=== PATIENT | male | born 1970 | race Hispanic/Latino ===

== ENCOUNTER 2022-05-22 10:01 | Inpatient (IN) | payer SELFPAY ==
[2022-05-22] MEDS ORDERED: methylPREDNISolone Sod Succ/PF 125 MG/2 ML VIAL ONE (10:58)
[2022-05-22] MEDS ORDERED: Albuterol 2.5 MG/0.5 ML NEB ONE (11:05)
[2022-05-22 11:08] LABS: Hemoglobin 16.4 g/dL (14.0-18.0); Mean Corpuscular HGB CONC 35.9 g/dL (32.0-36.0); Mean Corpuscular Hemoglobin 38.8 pg (27.0-31.0); Platelet Count 171 10x3/uL (130-400); RBC Distribution Width 13.2 % (11.5-14.5); Red Blood Cell (RBC) Count 4.23 mill/uL (4.70-6.10); White Blood Cell (WBC) Count 8.2 10x3/uL (4.8-10.8)
[2022-05-22 11:22] LABS: #Eosinphils 0.1 thou/uL (0.0-0.7); #Lymphocytes 1.6 thou/uL (1.20-3.40); #Monocytes 0.6 thou/uL (0.11-0.59); #Neutrophils 5.9 thou/uL (1.40-6.50); %Basophils 0.6 % (0.0-1.0); %Eosinophils 1.7 % (0.0-10.0); %Lymphocytes 19.6 % (21.0-51.0); %Monocytes 6.7 % (0.0-10.0); %Neutrophils 71.4 % (42.0-75.0); Hypochromia SLIGHT = 6-15 cells (100X) (0-5/hpf); MDiff Complete? YES; Microcytosis SLIGHT = 6-15 cells (100X) (0-5/hpf); Platelet Morphology Comment Appears Adequate
[2022-05-22 11:23] LABS: ALT (SGPT) 28 U/L (8-55); AST (SGOT) 30 U/L (5-34); Albumin 3.5 g/dL (3.5-5.0); Alkaline Phosphatase 118 U/L (40-110); Anion Gap 9 mmol/L (10-20); BUN (Urea Nitrogen) 11 mg/dL (8.9-20.6); Bilirubin, Total 0.5 mg/dL (0.2-1.2); Calc. Creatinine Clearance 0 mL/min (70-130); Calcium 8.3 mg/dL (7.8-10.44); Carbon Dioxide 34 mmol/L (22-29); Chloride 101 mmol/L (98-107); Estimated GFR 111; Globulin 3.3 g/dL (2.4-3.5); Glucose 92 mg/dL (70-105); Potassium 4.4 mmol/L (3.5-5.1); Protein, Total 6.8 g/dL (6.0-8.3); Sodium 140 mmol/L (136-145)
[2022-05-22 11:45] LABS: CKMB 5.2 ng/mL (0-6.6)
[2022-05-22 11:59] LABS: SARS-CoV-2 NAA Rapid Test Not Detected (NotDetected)
[2022-05-22] MEDS ORDERED: Iopamidol-370 76% 500 ML MDV (1 ML CHARGE) ONE (12:12)
[2022-05-22] MEDS ORDERED: cefTRIAXone (ROCEPHIN) 2 GM VIAL ONE (13:32)
[2022-05-22] MEDS ORDERED: Azithromycin 500 MG VIAL ONE (13:32)
[2022-05-22] MEDS ORDERED: Aspirin Chewable 81 MG TAB ONE (14:45)
[2022-05-22] MEDS ORDERED: Acetaminophen 325 MG TAB PO PRN (15:59)
[2022-05-22] MEDS ORDERED: Ondansetron PF 4 MG/2 ML Vial IVP PRN (15:59)
[2022-05-22] MEDS ORDERED: Ondansetron ODT 4 MG TAB PO PRN (15:59)
[2022-05-22 17:57] LABS: Troponin I 0.035 ng/mL (< 0.028)
[2022-05-22 18:54] VITALS: BMI 57.6
[2022-05-22] MEDS ORDERED: Ipratropium/Albuterol 3 ML NEB NEB SCH (19:00)
[2022-05-22] MEDS: Atorvastatin Calcium 40 MG TAB PO SCH (20:32)
[2022-05-23 06:13] LABS: Anion Gap 12 mmol/L (10-20); BUN (Urea Nitrogen) 11 mg/dL (8.9-20.6); Calc. Creatinine Clearance 231 mL/min (70-130); Calcium 8.5 mg/dL (7.8-10.44); Carbon Dioxide 34 mmol/L (22-29); Cardiac Risk 4.4 (Less than 4.5); Chloride 100 mmol/L (98-107); Cholesterol 195 mg/dl (< 200 Desired); Estimated GFR 110; Glucose 113 mg/dL (70-105); HDL Cholesterol 44 mg/dL (>60 Neg Risk); LDL Cholesterol, Calculated 130 mg/dL; Potassium 4.5 mmol/L (3.5-5.1); Sodium 141 mmol/L (136-145); Triglycerides 105 mg/dL (Less than 150)
[2022-05-23 06:48] LABS: #Eosinphils 0.1 thou/uL (0.0-0.7); #Monocytes 0.7 thou/uL (0.11-0.59); #Neutrophils 7.3 thou/uL (1.40-6.50); %Basophils 0.1 % (0.0-1.0); %Eosinophils 0.5 % (0.0-10.0); %Lymphocytes 20.1 % (21.0-51.0); %Monocytes 7.3 % (0.0-10.0); Hemoglobin 16.6 g/dL (14.0-18.0); MDiff Complete? YES; Macrocytosis SLIGHT = 6-15 cells (100X) (0-5/hpf); Mean Corpuscular HGB CONC 32.2 g/dL (32.0-36.0); Mean Corpuscular Hemoglobin 35.2 pg (27.0-31.0); Mean Platelet Volume 8.7 fL (7.4-10.4); Platelet Count 172 10x3/uL (130-400); Polychromasia SLIGHT = 2-3 cells (100X) (0-2/hpf); RBC Distribution Width 13.1 % (11.5-14.5); Red Blood Cell (RBC) Count 4.71 mill/uL (4.70-6.10); White Blood Cell (WBC) Count 10.1 10x3/uL (4.8-10.8)
[2022-05-23] MEDS ORDERED: Ipratropium/Albuterol 3 ML NEB NEB PRN (08:21)
[2022-05-23] MEDS: Aspirin 81 mg Enteric Coated Tablet PO SCH (09:20)
[2022-05-23 12:59] VITALS: BP 158/69
[2022-05-23 13:35] LABS: Actual Bicarbonate (HCO3a) 41.9 mEq/L (22-28); Base Excess (BEa) 9.9 mEq/L (-2.0 to +3.0); Calcium, Ionized (arterial) 1.16 mmol/L (1.12-1.30); Carboxyhemoglobin (COHb) 1.5 gm% (0.0-3.0); Hemoglobin (Hb) 16.8 g/dL (14.0-18.0); Potassium - ABG Lab 4.26 mmol/L (3.70-5.30); pH, Arterial 7.27 (7.35-7.45)
[2022-05-23 13:40] LABS: CO2 Tension 93.3 mmHg (35.0-45.0)
[2022-05-23] MEDS: cefTRIAXone\\ROCEPHIN 1 GM in Sodium Chloride 0.9% 100 ML IVPB SCH (13:52)
[2022-05-23] MEDS ORDERED: methylPREDNISolone Sod Succ 40 MG VIAL IVP SCH (14:45)
[2022-05-23] MEDS ORDERED: Ipratropium/Albuterol 3 ML NEB NEB SCH (15:00)
[2022-05-23] MEDS: Azithromycin 500 MG in Sodium Chloride 0.9% 250 ML 250 ML IVPB SCH (15:29)
[2022-05-23] MEDS ORDERED: methylPREDNISolone Sod Succ/PF 125 MG/2 ML VIAL IVP SCH (18:00)
[2022-05-23] MEDS: Ipratropium/Albuterol 3 ML NEB IPPB SCH (18:47)
[2022-05-23] MEDS: methylPREDNISolone Sod Succ 40 MG VIAL IVP SCH (20:37)
[2022-05-23] MEDS: Atorvastatin Calcium 40 MG TAB PO SCH (20:37)
[2022-05-24] MEDS: Ipratropium/Albuterol 3 ML NEB IPPB SCH ×4 (01:19→18:44)
[2022-05-24 04:39] LABS: Anion Gap 12 mmol/L (10-20); BUN (Urea Nitrogen) 11 mg/dL (8.9-20.6); Calc. Creatinine Clearance 250 mL/min (70-130); Calcium 8.4 mg/dL (7.8-10.44); Carbon Dioxide 37 mmol/L (22-29); Chloride 98 mmol/L (98-107); Estimated GFR 113; Glucose 119 mg/dL (70-105); Potassium 4.6 mmol/L (3.5-5.1); Sodium 142 mmol/L (136-145)
[2022-05-24] MEDS: methylPREDNISolone Sod Succ 40 MG VIAL IVP SCH ×2 (05:13→19:57)
[2022-05-24] MEDS ORDERED: Pantoprazole 40 MG VIAL IVP SCH (09:00)
[2022-05-24] MEDS: Aspirin 81 mg Enteric Coated Tablet PO SCH (10:34)
[2022-05-24] MEDS: cefTRIAXone\\ROCEPHIN 1 GM in Sodium Chloride 0.9% 100 ML IVPB SCH (15:32)
[2022-05-24] MEDS: Azithromycin 500 MG in Sodium Chloride 0.9% 250 ML 250 ML IVPB SCH (16:23)
[2022-05-24] MEDS: Atorvastatin Calcium 40 MG TAB PO SCH (19:56)
[2022-05-25] MEDS: Ipratropium/Albuterol 3 ML NEB IPPB SCH (00:09)
[2022-05-25 06:26] LABS: Actual Bicarbonate (HCO3v) 35 mEq/L (22-28); Base Excess 8.4 mEq/L (-2.0 to +3.0); Calcium, Ionized (venous) 1.06 mmol/L (1.16-1.32); Chloride (VBG) 96 mmol/L (98-106); Hemoglobin (Hb) 17.3 g/dL (13.1-17.2); Potassium (VBG) 4.23 mmol/L (3.70-5.30); Sodium 140.2 mmol/L (133-146); pH (venous) 7.43 (7.32-7.43)
[2022-05-25] MEDS: methylPREDNISolone Sod Succ 40 MG VIAL IVP SCH (08:46)
[2022-05-25] MEDS: Aspirin 81 mg Enteric Coated Tablet PO SCH (08:46)
[2022-05-25 11:51] VITALS: TEMP 98.2
[2022-05-25] MEDS: cefTRIAXone\\ROCEPHIN 1 GM in Sodium Chloride 0.9% 100 ML IVPB SCH (15:02)
[2022-05-25] MEDS: Azithromycin 500 MG in Sodium Chloride 0.9% 250 ML 250 ML IVPB SCH (15:03)
[2022-05-26] MEDS ORDERED: methylPREDNISolone Sod Succ 40 MG VIAL IVP SCH (09:00)
== END 2022-05-25 16:11 | disposition home or self-care (01) | DRG 193 ==
LOC: ERS 10:01 → ERHOLD 14:51 → OBSVTOIN 15:59 → 2SW 16:27 → IMCU/EMU 16:53 → CCU 05-23 14:12 → IMCU/EMU 05-23 19:24
PROVIDERS: ADMIT Family Medicine; ATTEND Internal Medicine
PROC: 4A133R1 Monitoring of Arterial Saturation, Peripheral, Percutaneous Approach (ICD-10-PCS; principal; 2022-05-23)
PROC: 5A09457 Assistance with Respiratory Ventilation, 24-96 Consecutive Hours, Continuous Positive Airway Pressure (ICD-10-PCS; 2022-05-23)
DX: J18.9 Pneumonia, unspecified organism (principal); I21.A1 Myocardial infarction type 2; J96.01 Acute respiratory failure with hypoxia; J96.02 Acute respiratory failure with hypercapnia; Z68.42 Body mass index [BMI] 45.0-49.9, adult; J44.1 Chronic obstructive pulmonary disease with (acute) exacerbation; J44.0 Chronic obstructive pulmonary disease with (acute) lower respiratory infection; G47.33 Obstructive sleep apnea (adult) (pediatric); E78.00 Pure hypercholesterolemia, unspecified; Z20.822 Contact with and (suspected) exposure to COVID-19; K42.9 Umbilical hernia without obstruction or gangrene; E66.01 Morbid (severe) obesity due to excess calories; Z79.82 Long term (current) use of aspirin; Z79.899 Other long term (current) drug therapy
CPT/HCPCS: 36415; 71045; 71275; 80048; 80053; 80061; 82553; 82805; 83605; 83735; 83880; 84484; 85025; 87040; 93005; 93306; 94640; 94644; 94660; 96365; 96367; 96375; C9113; G0378; J0456; J0696; J1650; J2920; J2930; J3490; J7050; J7611; J7620; Q9967

== ENCOUNTER → 2022-06-07 | Outpatient (CLI) | payer SELFPAY | LOC: SLEEPLAB 19:00 | PROVIDERS: ATTEND Nurse Practitioner Family | DX: G47.33 Obstructive sleep apnea (adult) (pediatric) (principal); R53.83 Other fatigue; E66.9 Obesity, unspecified; R06.83 Snoring; I11.0 Hypertensive heart disease with heart failure; I50.9 Heart failure, unspecified; Z68.43 Body mass index [BMI] 50.0-59.9, adult; R09.02 Hypoxemia | CPT/HCPCS: 95811 ==